=== PATIENT | female | born 1940 | race African-American/Black ===

== ENCOUNTER 2016-12-11 14:08 | Emergency (ER) | payer MEDICARE, OTHER ==
[~2016-12-11] VITALS: Ht 172.7 cm; Wt 83.9 kg
[~2016-12-11 14:08] MED LIST: AMLODIPINE BESYL5 MG ORAL; LEVETIRACE100 MG/1 M GT; SYNTHROID75 MCG ORAL
[2016-12-11] MEDS ORDERED: Tylenol #3 tab (300mg/30mg) ORAL ONE (14:45)
--- NOTE | 2016-12-11 14:49 | Emergency Room Report ---
History of Present Illness General Chief Complaint: Pain Source: Patient, EMS Present Illness HPI [id number] with acute on chronic left knee pain. History of OA. No fever/chills, trauma today or recently. No rash overlying left knee. Didnt take any OTC meds. Pain with ambulation. Has had PT for OA in the past. Doesnt have current orthopedist. 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 Hx Pacemaker: No - THYROID NODULES Hx Cancer: No Hx Gastrointestinal Problems: No Hx Neurological Problems: Yes Hx Dizziness: Yes Hx Neurologic Surgery: Yes - brain surgery October/2015 Review of Systems All Other Systems: negative except mentioned in HPI Physical Exam Vital Signs Date Time Temp Pulse Resp B/P Pulse Ox O2 Delivery O2 Flow Rate FiO2 12/11/16 14:01 97.9 74 16 127/72 98 Room Air Sp02 EP Interpretation: reviewed, normal General Appearance: normal inspection, well appearing, no apparent distress, alert, GCS 15, non-toxic Head: normocephalic, atraumatic Eyes: bilateral eye EOMI, bilateral eye PERRL ENT: normal ENT inspection, hearing grossly normal, normal voice Neck: normal inspection, full range of motion, supple, no bony tend Respiratory: normal inspection, lungs clear, normal breath sounds, no respiratory distress, no retraction, no wheezing Gastrointestinal: normal inspection, normal bowel sounds, non tender, soft, no guarding, no hernia Genitourinary: no CVA tenderness Musculoskeletal: other - Left knee: Very mild obvious swelling supra-patellar. No appreciable wamrth. No ttp. No rash or erythema. Pain with flexion. Neurologic: normal inspection, alert, responsive, speech normal Psychiatric: normal inspection, judgement/insight normal, mood/affect normal Skin: normal inspection, normal color, no rash Medical Decision Making Diagnostic Impression: Primary Impression: Left knee pain Qualified Codes: M25.562 - Pain in left knee ER Course Left knee pain Xray shows chronic OA No obvious effusion Low suspicion for septic joint or gout given afebrile, well appearing, no palpable warmth, no redness, no cellulitis Analgesia provided Advised PMD followup for Ortho referral Other X-Ray Diagnostic Results X-Ray ordered: left knee # of Views/Limited Vs Complete: 3 View Interpretation: no fractures, no dislocation, no soft tissue swelling Indication: Pain Impression: No acute disease Date Electronically Signed: Dec 11, 2016 Time Electronically Signed: 15:32 Interpreting ER Physician: Gabriele Last Vital Signs Date Time Temp Pulse Resp B/P Pulse Ox O2 Delivery O2 Flow Rate FiO2 12/11/16 14:01 97.9 74 16 127/72 98 Room Air Status: improved Disposition: HOME, SELF-CARE Scripts Acetaminophen With Codeine (T#3) (TYLENOL #3 TAB*) Y Tab 1 TAB ORAL Q8H Y for For Pain, #20 TAB Prov: BRIAN JAMES M.D. 12/11/16 BRIAN JAMES M.D. Dec 11, 2016 14:49
[2016-12-11] MEDS ORDERED: ACETAMINOPHEN-1 EAC1 ORAL (15:09)
--- NOTE | 2016-12-11 15:44 | Diagnostic Imaging Report ---
Indications: Left knee pain Technique: 3 views left knee. Findings: Comparison: None No fracture, dislocation, joint space widening or significant effusion, lytic destruction, periosteal reaction , surrounding soft tissue swelling/foreign body/gas, or other acute changes are identified. Patellofemoral joint space the lateral knee joint compartment narrowing with marginal osteophyte formation, latter also with subchondral sclerosis. Scattered arterial mural calcifications. IMPRESSION: No evidence of acute abnormality Bicompartmental osteoarthritis Arteriosclerosis.
[2016-12-11 15:55] VITALS: BP 138/69
== END 2016-12-11 15:55 | disposition home or self-care (01) ==
LOC: EDBD 14:08 → EMR 14:28
DX: M17.12 Unilateral primary osteoarthritis, left knee (principal); I70.90 Unspecified atherosclerosis
CPT/HCPCS: 99283